=== PATIENT | male | born 1995 | race Caucasian/White ===

== ENCOUNTER 2017-01-20 08:43 | Emergency (ER) | payer SELFPAY ==
[~2017-01-20] VITALS: Ht 170.2 cm; Wt 91.0 kg
[~2017-01-20 08:43] MED LIST: ALBU6.7H INH; BENA25TA3 PO; DOXY100C PO
[2017-01-20 08:45] VITALS: BP 142/74; PULSE 80; RESP 16; TEMP 98.2; O2SAT 98
--- NOTE | 2017-01-20 08:57 | PD ---
HPI . " I have chlamydia and burning with urination" Chief Complaint: Complaint Time Seen by Provider: 08:56 Travel History International Travel<30 days: No Contact w/Intl Traveler<30days: No Traveled to known affect area: No History of Present Illness HPI 21-year-old male with no significant past medical history here with complaints of penile discharge and burning with urination. Patient tells me he thinks he has chlamydia. He's had one prior episode of chlamydia at age 14. He admits to unprotected sex a few days ago. He denies any other issues. He is accompanied by his brother, who he states can stay present during the exam and discussion. 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) Allergies-Medications (Allergen,Severity, Reaction): Coded Allergies: Sulfa (Verified Allergy, Mild, RASH, 01/20/17) Reported Meds & Prescriptions Reported Meds & Active Scripts Active Azithromycin 500 Mg Tab 1,000 Mg PO DAILY Review of Systems General / Constitutional: No: Fever Eyes: No: Visual changes HENT: No: Headaches Cardiovascular: No: Chest Pain or Discomfort Respiratory: No: Shortness of Breath Gastrointestinal: No: Abdominal Pain Genitourinary: Positive: Dysuria, Other (penile discharge) Musculoskeletal: No: Pain Skin: No Rash Neurologic: No: Weakness Psychiatric: No: Depression Endocrine: No: Polydipsia Hematologic/Lymphatic: No: Easy Bruising Physical Exam Narrative GENERAL: AAO x 3, no acute distress, Well-nourished, well-developed patient. SKIN: Warm and dry. No visible rashes or bruising. HEAD: Normocephalic and atraumatic. EYES: No scleral icterus. No injection or drainage. ENT: No nasal drainage noted. Mucous membranes pink. Airway patent. NECK: Supple, trachea midline. No JVD. CARDIOVASCULAR: Regular rate and rhythm without murmurs, gallops, or rubs. RESPIRATORY: Breath sounds equal bilaterally. No accessory muscle use. No rhonchi or rales. GASTROINTESTINAL: Abdomen soft, non-tender, nondistended. EXTREMITIES: No cyanosis or edema. GENITAL: Yolanda RN present; irritated urethra meatus, + clear mucoid discharge, very slight hint of white BACK: Nontender without obvious deformity. No CVA tenderness. PSYCH: AAO x 3, normal affect. Data Data Last Documented VS Vital Signs Date Time Temp Pulse Resp B/P Pulse Ox O2 Delivery O2 Flow Rate FiO2 01/20/17 08:45 98.2 80 16 142/74 98 Orders Gc And Chlamydia Pcr (01/20/17 09:14) Ceftriaxone Inj (Rocephin Inj) (01/20/17 09:30) Sodium Chloride 0.9% Flush (Ns Flush) (01/20/17 09:30) Lidocaine 1% Inj (50 Ml) (Xylocaine 1% I (01/20/17 09:30) Labs Laboratory Tests Test 01/20/17 09:15 Chlamydia trachomatis DNA NOT DETECTED (PCR) Neisseria gonorrhoeae DNA NOT DETECTED (PCR) MDM Medical Decision Making Medical Screen Exam Complete: Yes Emergency Medical Condition: Yes Medical Record Reviewed: Yes Differential Diagnosis Urethritis, chlamydia, gonorrhea, less likely syphilis Narrative Course 21-year-old male with no significant past medical history here with complaints of penile discharge and burning with urination. Patient tells me he thinks he has chlamydia. He's had one prior episode of chlamydia at age 14. He admits to unprotected sex a few days ago. He denies any other issues. He is accompanied by his brother, who he states can stay present during the exam and discussion. Of note patient is here with burning with urination. He is in a bit of a unique situation. Him and his friend, who is also being seen for the same issue happened to have sex with the same person a few nights ago. He says that he was intoxicated and unfortunately used no form of protection. Since then he' s been having these issues. He is here seeking treatment. We have discussed the GC test and that we will notify him of the test results once made available. We discussed treatment for g/c with rocephin and azithromycin. I explained to patient there is a possibility he may not have either, but he has opted for treatment due to exposure risks and friend with same complaints. We discussed notification of any other partners. I also advised him to follow-up with the [facility] for further testing including syphilis, HIV, hepatitis, herpes and HPV. Patient verbalized understanding of instructions, questions were answered, and thanked me for their care. I advised them if their condition worsens, please return to the nearest emergency room for further care. [id number]: called patient as rx for azithromycin was written for 4 tabs (1000 mg daily), patient has already taken 2 tablets, instructed him not to take anymore tomorrow: also notified that test results were negative and he was very happy. patient verbalized understanding of instructions and will toss additional tablets in trash. Diagnosis Primary Impression: Urethritis Patient Instructions: General Instructions, Sexually Transmitted Diseases (ED) Additional Instructions: Please return to emergency department if your symptoms return or worsen. Follow up with your primary care provider. Take medications as prescribed. Please go visit the [facility] Department for any further testing as we discussed. Med/Other Pt SpecificInfo: Prescription(s) given Scripts Azithromycin 500 Mg Tab1,000 Mg PO DAILY #2 TAB Ref 0 Prov:Tamara Fonseca DO 01/20/17 Disposition: 01 DISCHARGE HOME Condition: Stable Anusha Santana Jan 20, 2017 08:57
[2017-01-20] MEDS ORDERED: AZIT500T2 PO ×3 (09:21→16:51)
[2017-01-20] MEDS ORDERED: SODIUM CHLORIDE 0.9% FLUSH 10 ML FLUSH IVF PRN (09:30)
[2017-01-20] MEDS ORDERED: LIDOCAINE HCL 1% 50 ML VIAL XX ONE (09:30)
[2017-01-20] MEDS ORDERED: cefTRIAXone 250 MG VIAL IM ONE (09:30)
[2017-01-20 12:25] LABS: CHLAMYDIA PCR NOT DETECTED (NOT DETECT); NEISSERIA PCR NOT DETECTED (NOT DETECT)
== END 2017-01-20 10:47 | disposition home or self-care (01) ==
LOC: NEPK 08:43
DX: N34.2 Other urethritis (principal); H91.91 Unspecified hearing loss, right ear; F17.210 Nicotine dependence, cigarettes, uncomplicated
CPT/HCPCS: 87491; 87591; 96372; 99283; J0696

== ENCOUNTER 2017-03-16 00:59 | Emergency (ER) | payer SELFPAY ==
[~2017-03-16] VITALS: Ht 170.2 cm; Wt 90.8 kg
[~2017-03-16 00:59] MED LIST changes: -ALBU6.7H INH; +AZIT500T2 PO; -BENA25TA3 PO; -DOXY100C PO
[2017-03-16 01:06] VITALS: BP 137/86; PULSE 90; RESP 20; TEMP 98.2; O2SAT 98
--- NOTE | 2017-03-16 01:20 | PD ---
HPI Chief Complaint: Injury Time Seen by Provider: 01:19 Travel History International Travel<30 days: No Contact w/Intl Traveler<30days: No Traveled to known affect area: No History of Present Illness HPI 21-year-old male with several minutes of pain and swelling in the right medial thigh just proximal to the knee. He notes some pain in the region. 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 Pain is worse with palpation. Severity is moderate. 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 There is about 5 cm x 3 cm of ecchymosis in the medial distal right thigh. There is no evidence of generalized edema down the right leg. HEAD: Atraumatic. Normocephalic. EYES: Pupils equal and round. No scleral icterus. No injection or drainage. ENT: No nasal bleeding or discharge. Mucous membranes pink and moist. NECK: Trachea midline. No JVD. CARDIOVASCULAR: Regular rate and rhythm. No murmur appreciated. RESPIRATORY: No accessory muscle use. Clear to auscultation. Breath sounds equal bilaterally. GASTROINTESTINAL: Abdomen soft, non-tender, nondistended. Hepatic and splenic margins not palpable. MUSCULOSKELETAL: No obvious deformities. No clubbing. No cyanosis. No edema. NEUROLOGICAL: Awake and alert. No obvious cranial nerve deficits. Motor grossly within normal limits. Normal speech. PSYCHIATRIC: Appropriate mood and affect; insight and judgment normal. Data Data Last Documented VS Vital Signs Date Time Temp Pulse Resp B/P Pulse Ox O2 Delivery O2 Flow Rate FiO2 03/16/17 01:06 98.2 90 20 137/86 98 Vital signs reviewed MDM Medical Decision Making Medical Screen Exam Complete: Yes Emergency Medical Condition: Yes Medical Record Reviewed: Yes Differential Diagnosis Contusion, DVT, ecchymosis, bleeding diathesis, hemarthrosis, fracture Narrative Course Patient has a contusion of the medial right thigh just above the knee. It is quite small. Ice Contreras as needed. Diagnosis Primary Impression: Contusion Qualified Code: S70.11XA - Contusion of right thigh, initial encounter Referrals: Primary Care Physician as needed Additional Instructions: You have a choice when it comes to health care, and we are glad that you chose [facility]. Hopefully, we have met your expectations on today's visit. You are welcome to return to [facility] at any time, as we are committed to meeting the health care needs of our community. Med/Other Pt SpecificInfo: No Change to Meds Disposition: 01 DISCHARGE HOME Condition: Stable Jeremi Polanco MD Mar 16, 2017 01:20
[2017-03-16] MEDS ORDERED: BENA25TA6 (01:23)
== END 2017-03-16 01:38 | disposition home or self-care (01) ==
LOC: PHED 00:59
DX: S70.11XA Contusion of right thigh, initial encounter (principal); F17.210 Nicotine dependence, cigarettes, uncomplicated; W22.8XXA Striking against or struck by other objects, initial encounter; Y93.89 Activity, other specified; Y92.511 Restaurant or cafe as the place of occurrence of the external cause; Y99.0 Civilian activity done for income or pay
CPT/HCPCS: 99281